=== PATIENT | female | born 1935 | race Caucasian/White ===

== ENCOUNTER 2018-01-11 10:34 | Emergency (ER) | payer MEDICARE, OTHER ==
[~2018-01-11] VITALS: Ht 152.4 cm; Wt 62.1 kg
[2018-01-11] MEDS ORDERED: SODIUM CHLORIDE FLUSH 10ML SYR IVF ONE (11:30)
[2018-01-11] MEDS ORDERED: SODIUM CHLORIDE 0.9% 1,000ML IVBOLUS ONE (11:30)
[2018-01-11 11:53] LABS: BASOPHILS # (AUTO) 0.02 x10^3/uL (0-0.1); BASOPHILS % (AUTO) 0 % (0-1); EOSINOPHILS # (AUTO) 0.33 x10^3/uL (0-0.4); EOSINOPHILS % (AUTO) 3 % (1-7); LYMPHOCYTES # (AUTO) 1.25 x10^3/uL (1-3.4); LYMPHOCYTES % (AUTO) 13 % (22-44); MD NO; MEAN CORPUSCULAR HEMOGLOBIN 30.9 pg (27.0-34.8); MEAN CORPUSCULAR HGB CONC 33.4 g/dL (32.4-35.8); MEAN CORPUSCULAR VOLUME 92.5 fL (80-100); MONOCYTES # (AUTO) 1.12 x10^3/uL (0.2-0.8); MONOCYTES % (AUTO) 12 % (2-9); NEUTROPHILS # (AUTO) 6.98 x10^3/uL (1.8-6.8); NEUTROPHILS % (AUTO) 72 % (42-75); PLATELET COUNT 302 x10^3/uL (130-400); RED BLOOD COUNT 4.37 x10^6/uL (3.82-5.3); RED CELL DISTRIBUTION WIDTH 13.8 % (9.6-15.2)
[2018-01-11 12:05] LABS: ALBUMIN 3.3 g/dL (3.4-5.0); ANION GAP 9 mmol/L (5-15); CALCIUM 8.7 mg/dL (8.5-10.1); CHLORIDE 109 mmol/L (98-107); CREATININE 1.91 mg/dL (0.55-1.02)
[2018-01-11] MEDS ORDERED: FENTANYL PF 100 MCG/2ML ONE (13:10)
[2018-01-11] MEDS ORDERED: PROPOFOL 10 MG/ML, 20ML ONE (13:10)
[2018-01-11] MEDS ORDERED: PROPOFOL 10 MG/ML, 100ML IV ONE (13:30)
[2018-01-11] MEDS ORDERED: FENTANYL PF 100 MCG/2ML IVPush ONE (13:30)
[2018-01-11 16:19] VITALS: BP 169/54
== END 2018-01-11 17:07 | disposition home or self-care (01) ==
LOC: ED 11:20
PROC: 0DC58ZZ Extirpation of Matter from Esophagus, Via Natural or Artificial Opening Endoscopic (ICD-10-PCS; principal; 2018-01-11 13:00)
DX: T18.128A Food in esophagus causing other injury, initial encounter (principal); I10 Essential (primary) hypertension; E03.9 Hypothyroidism, unspecified; E78.5 Hyperlipidemia, unspecified; X58.XXXA Exposure to other specified factors, initial encounter; Y93.89 Activity, other specified; Y92.89 Other specified places as the place of occurrence of the external cause; Y99.8 Other external cause status
CPT/HCPCS: 36415; 80048; 82040; 85025; 99152; 99153; 99285

== ENCOUNTER 2019-09-04 10:35 | Emergency (ER) | payer MEDICARE, OTHER ==
[~2019-09-04] VITALS: Ht 152.4 cm; Wt 65.2 kg
[~2019-09-04 10:35] MED LIST: AMIO200T42 PO; AMLO10TA8 PO; BUME0.5T2 PO; DULO30CA2 PO; FERR324T5 PO; ISOS30TA8 PO; LEVO88TA4 PO; OMEP-110 PO; POTA10TA5 PO; RANI150T4 PO; ROSU10TA2 PO; SITA25TA PO; SUCR1ORA5 PO; VALS80TA3 PO
--- NOTE | 2019-09-04 11:46 | NUR ---
piv started from which labs were drawn clean catch urine obtained sent to lab
[2019-09-04 11:51] LABS: CULTURE INDICATED? YES; MICROSCOPIC INDICATED
[2019-09-04 11:57] LABS: BASOPHILS # (AUTO) 0.04 x10^3/uL (0-0.1); BASOPHILS % (AUTO) 0 % (0-1); EOSINOPHILS # (AUTO) 0.45 x10^3/uL (0-0.4); EOSINOPHILS % (AUTO) 4 % (1-7); LYMPHOCYTES # (AUTO) 1.73 x10^3/uL (1-3.4); LYMPHOCYTES % (AUTO) 16 % (22-44); MD NO; MEAN CORPUSCULAR VOLUME 97.2 fL (80-100); MEAN PLATELET VOLUME 9.1 fL (7.4-10.4); MONOCYTES # (AUTO) 1.33 x10^3/uL (0.2-0.8); MONOCYTES % (AUTO) 12 % (2-9); NEUTROPHILS % (AUTO) 68 % (42-75); PLATELET COUNT 220 x10^3/uL (130-400); RED BLOOD COUNT 4.31 x10^6/uL (3.82-5.3); RED CELL DISTRIBUTION WIDTH 13.7 % (9.6-15.2)
[2019-09-04 12:10] LABS: ALBUMIN 3.1 g/dL (3.4-5.0); ANION GAP 8 mmol/L (5-15); CALCIUM 8.5 mg/dL (8.5-10.1); CHLORIDE 110 mmol/L (98-107)
[2019-09-04 12:14] LABS: ALANINE AMINOTRANSFERASE 49 U/L (12-78); ALKALINE PHOSPHATASE 143 U/L (45-117); BILIRUBIN,TOTAL 0.5 mg/dL (0.2-1.0); CREATININE 1.79 mg/dL (0.55-1.02); TOTAL PROTEIN 7.5 g/dL (6.4-8.2)
--- NOTE | 2019-09-04 12:23 | NUR ---
With reassessment patient deferring pain/nausea medicines. Vss on monitor technician Provider made aware of contrast allergy- order changed to CT abd w/OUT contrast patient/family updated
[2019-09-04 12:25] VITALS: BP 163/44
[2019-09-04] MEDS ORDERED: SODIUM CHLORIDE FLUSH 10ML SYR IVF ONE (12:30)
--- NOTE | 2019-09-04 13:00 | NUR ---
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
== END 2019-09-04 14:07 | disposition home or self-care (01) ==
LOC: ED 11:09
DX: R10.84 Generalized abdominal pain (principal); I10 Essential (primary) hypertension
CPT/HCPCS: 36415; 74176; 80053; 81001; 83690; 85025; 87086; 93005; 99284

== ENCOUNTER 2020-05-15 14:22 | Emergency (ER) | payer MEDICARE, OTHER ==
[~2020-05-15] VITALS: Ht 152.4 cm; Wt 62.9 kg
[2020-05-15 14:39] VITALS: BP 172/43
--- NOTE | 2020-05-15 14:45 | NUR ---
PT AMBULATES WELL FROM TRIAGE TO ED ROOM.
[2020-05-15 15:57] LABS: BASOPHILS # (AUTO) 0.04 x10^3/uL (0-0.1); BASOPHILS % (AUTO) 1 % (0-1); EOSINOPHILS # (AUTO) 0.18 x10^3/uL (0-0.4); EOSINOPHILS % (AUTO) 2 % (1-7); LYMPHOCYTES # (AUTO) 2.07 x10^3/uL (1-3.4); LYMPHOCYTES % (AUTO) 25 % (22-44); MD NO; MEAN CORPUSCULAR HEMOGLOBIN 30.9 pg (27.0-34.8); MEAN CORPUSCULAR HGB CONC 31.8 g/dL (32.4-35.8); MEAN CORPUSCULAR VOLUME 97.1 fL (80-100); MEAN PLATELET VOLUME 8.9 fL (7.4-10.4); MONOCYTES # (AUTO) 1.03 x10^3/uL (0.2-0.8); MONOCYTES % (AUTO) 12 % (2-9); NEUTROPHILS % (AUTO) 61 % (42-75); PLATELET COUNT 214 x10^3/uL (130-400); RED BLOOD COUNT 4.85 x10^6/uL (3.82-5.3); RED CELL DISTRIBUTION WIDTH 13.5 % (9.6-15.2)
[2020-05-15] MEDS ORDERED: SODIUM CHLORIDE FLUSH 10ML SYR IVF ONE (16:00)
[2020-05-15] MEDS ORDERED: SODIUM CHLORIDE 0.9% 1,000ML IVBOLUS ONE (16:00)
[2020-05-15 16:09] LABS: CHLORIDE 108 mmol/L (98-107)
[2020-05-15 16:16] LABS: ALANINE AMINOTRANSFERASE 43 U/L (12-78); ALBUMIN 3.5 g/dL (3.4-5.0); ALKALINE PHOSPHATASE 119 U/L (45-117); ANION GAP 6 mmol/L (5-15); BILIRUBIN,TOTAL 0.9 mg/dL (0.2-1.0); CALCIUM 9.2 mg/dL (8.5-10.1); CREATININE 2.34 mg/dL (0.55-1.02); TOTAL PROTEIN 8.5 g/dL (6.4-8.2)
[2020-05-15] MEDS ORDERED: OMNIPAQUE 350 MG/ML, 150 ML BOTTLE ONE (16:39)
--- NOTE | 2020-05-15 16:44 | NUR ---
PT UP TO RESTROOM WITH SAMPLE CUP FOR URINE COLLECTION.
[2020-05-15 17:04] LABS: MICROSCOPIC AUTO
== END 2020-05-15 18:51 | disposition home or self-care (01) ==
LOC: ED 15:23
DX: K22.2 Esophageal obstruction (principal); R11.2 Nausea with vomiting, unspecified; I10 Essential (primary) hypertension; E03.9 Hypothyroidism, unspecified
CPT/HCPCS: 36415; 74220; 80053; 81001; 83605; 83690; 85025; 87086; 96360; 99285; J7030; Q9967; 99284

== ENCOUNTER → 2020-06-19 | Outpatient (CLI) | payer MEDICARE, OTHER | END | disposition home or self-care (01) | LOC: STAR 09:29 | PROVIDERS: ATTEND Anesthesiology | DX: Z01.818 Encounter for other preprocedural examination (principal); Z11.59 Encounter for screening for other viral diseases | CPT/HCPCS: 36415; 87635 ==

== ENCOUNTER 2020-06-23 07:51 | Day surgery (SDC) | payer MEDICARE, OTHER ==
[~2020-06-23] VITALS: Ht 152.4 cm; Wt 61.2 kg
[2020-06-23] MEDS ORDERED: CHLORHEXIDINE 15 ML UDC MM STA (07:59)
[2020-06-23] MEDS ORDERED: LACTATED RINGERS 1,000 ML IV SCH (07:59)
[2020-06-23] MEDS ORDERED: CHLORHEXIDINE 15 ML UDC ONE (08:01)
[2020-06-23 08:06] VITALS: BP 175/69
[2020-06-23 08:24] LABS: BASOPHILS # (AUTO) 0.04 x10^3/uL (0-0.1); BASOPHILS % (AUTO) 1 % (0-1); EOSINOPHILS # (AUTO) 0.16 x10^3/uL (0-0.4); EOSINOPHILS % (AUTO) 2 % (1-7); LYMPHOCYTES % (AUTO) 25 % (22-44); MD NO; MEAN CORPUSCULAR HEMOGLOBIN 31.3 pg (27.0-34.8); MEAN CORPUSCULAR HGB CONC 32.5 g/dL (32.4-35.8); MEAN CORPUSCULAR VOLUME 96.2 fL (80-100); MEAN PLATELET VOLUME 8.3 fL (7.4-10.4); MONOCYTES # (AUTO) 1.11 x10^3/uL (0.2-0.8); MONOCYTES % (AUTO) 14 % (2-9); NEUTROPHILS # (AUTO) 4.83 x10^3/uL (1.8-6.8); NEUTROPHILS % (AUTO) 59 % (42-75); PLATELET COUNT 218 x10^3/uL (130-400); RED BLOOD COUNT 4.62 x10^6/uL (3.82-5.3)
[2020-06-23] MEDS ORDERED: SODIUM CHLORIDE 0.9% 1,000 ML IV SCH ×2 (08:30→08:33)
[2020-06-23] MEDS ORDERED: PLEASE ENTER HEIGHT AND WEIGHT MC SCH (08:30)
[2020-06-23 08:36] LABS: ANION GAP 7 mmol/L (5-15); CALCIUM 9.3 mg/dL (8.5-10.1); CHLORIDE 108 mmol/L (98-107); CREATININE 2.31 mg/dL (0.55-1.02)
[2020-06-23] MEDS ORDERED: PROPOFOL 10 MG/ML, 20ML ONE (08:58)
[2020-06-23] MEDS ORDERED: ONABOTULINUMTOXINA 100 UNITS ONE (09:36)
== END 2020-06-23 11:25 | disposition home or self-care (01) ==
LOC: OUT 07:51
PROVIDERS: ATTEND Internal Medicine Gastroenterology
DX: R13.14 Dysphagia, pharyngoesophageal phase (principal); K22.0 Achalasia of cardia; E11.22 Type 2 diabetes mellitus with diabetic chronic kidney disease; I12.9 Hypertensive chronic kidney disease with stage 1 through stage 4 chronic kidney disease, or unspecified chronic kidney disease; N18.9 Chronic kidney disease, unspecified; E03.9 Hypothyroidism, unspecified; J44.9 Chronic obstructive pulmonary disease, unspecified; Z87.891 Personal history of nicotine dependence; Z88.2 Allergy status to sulfonamides; Z88.8 Allergy status to other drugs, medicaments and biological substances; Z91.040 Latex allergy status; Z98.890 Other specified postprocedural states
CPT/HCPCS: 36415; 43236; 43239; 43259; 80048; 85025; 88305; 93005; J0585; J2704; J7030; J7120

== ENCOUNTER 2020-07-15 04:22 | Inpatient (IN) | payer MEDICARE, OTHER ==
[~2020-07-15] VITALS: Ht 165.1 cm; Wt 63.1 kg
--- NOTE | 2020-07-15 04:40 | NUR ---
DELLA. A&o x4, but vague historian. Per EMS, pt was at 86% RA upon arrival with diminished breath sounds throughout. Given duoneb with good effect. Pt states, "I don't remember any of this stuff you're asking me. I don't know." States she has been feelings increased weakness/RIVERA x "maybe a week" with associated dry, non-productive cough. Also states, "I had esophagus surgery the other day because I can't swallow." Denies complications, denies hemoptysis. States increased SOB since prior to procedure. Denies chest pain/abd pain. Denies fever/chills. Denies N/V/D. Able to turn and pivot from EMS to ED stretcher independently
[2020-07-15] MEDS ORDERED: SODIUM CHLORIDE FLUSH 10ML SYR IVF ONE (05:30)
[2020-07-15] MEDS ORDERED: ALBUTEROL/IPRATROPIUM 2.5MG/0.5MG, 3 ML NPPB ONE (05:30)
[2020-07-15 05:35] LABS: BASOPHILS # (AUTO) 0.04 x10^3/uL (0-0.1); BASOPHILS % (AUTO) 0 % (0-1); EOSINOPHILS # (AUTO) 0.05 x10^3/uL (0-0.4); EOSINOPHILS % (AUTO) 0 % (1-7); LYMPHOCYTES # (AUTO) 2.16 x10^3/uL (1-3.4); LYMPHOCYTES % (AUTO) 17 % (22-44); MD NO; MEAN CORPUSCULAR HEMOGLOBIN 31.7 pg (27.0-34.8); MEAN CORPUSCULAR HGB CONC 32.7 g/dL (32.4-35.8); MONOCYTES # (AUTO) 1.26 x10^3/uL (0.2-0.8); MONOCYTES % (AUTO) 10 % (2-9); NEUTROPHILS # (AUTO) 8.87 x10^3/uL (1.8-6.8); NEUTROPHILS % (AUTO) 72 % (42-75); PLATELET COUNT 205 x10^3/uL (130-400); RED BLOOD COUNT 3.85 x10^6/uL (3.82-5.3); RED CELL DISTRIBUTION WIDTH 14.2 % (9.6-15.2)
[2020-07-15] MEDS ORDERED: ALBUTEROL/IPRATROPIUM 2.5MG/0.5MG, 3 ML ONE (05:42)
--- NOTE | 2020-07-15 05:51 | NUR ---
CAREGIVER/DAUGHTER MANI TOMLINSON [phone]
[2020-07-15 06:04] LABS: ALBUMIN 3.2 g/dL (3.4-5.0); ANION GAP 10 mmol/L (5-15); CALCIUM 8.9 mg/dL (8.5-10.1); CHLORIDE 109 mmol/L (98-107)
[2020-07-15 06:12] LABS: ALANINE AMINOTRANSFERASE 31 U/L (12-78); ALKALINE PHOSPHATASE 110 U/L (45-117); BILIRUBIN,TOTAL 0.9 mg/dL (0.2-1.0); TOTAL PROTEIN 7.3 g/dL (6.4-8.2); TROPONIN I 0.044 ng/mL (0.000-0.045)
[2020-07-15] MEDS ORDERED: SODIUM CHLORIDE FLUSH 10ML SYR IVF PRN (07:00)
[2020-07-15] MEDS ORDERED: FUROSEMIDE 20 MG/2 ML IV ONE (07:00)
--- NOTE | 2020-07-15 07:00 | NUR ---
BEDSIDE REPORT RECIEVED FROM NOC RN, CARE ASSUMED AT THIS TIME. PT WITH C/O BURNING IN CHEST POST PREDNISONE ADMIN. ERMD UPDATED, GI COCKTAIL ORDERED. PT MEDICATED PER DEC. PT NOW ON 4L NC SATING 88-89%. ERMD AWARE. WILL REASSESS POST LASIX ADMIN.
[2020-07-15] MEDS ORDERED: FUROSEMIDE 20 MG/2 ML ONE (07:18)
[2020-07-15] MEDS ORDERED: MAALOX/HYOSCYAMINE/LIDOCAINE 45 ML BTL ONE (07:21)
[2020-07-15] MEDS ORDERED: MAALOX/HYOSCYAMINE/LIDOCAINE 45 ML BTL PO ONE (07:30)
--- NOTE | 2020-07-15 07:41 | NUR ---
ADMITTING MD IN TO EVAL PT AT THIS TIME, PT STILL REQUIRING INCREASING O2 AT THIS TIME PLACED ON NRB MASK 10L, PT SLOWLY REGAIN TO 93%. ADMITTING MD AWARE OF INCREASE OF O2 DEMANDS. RR 24-30
--- NOTE | 2020-07-15 07:42 | NUR ---
family wants up date call when possible: Kallie (daughter) [phone]
[2020-07-15] MEDS ORDERED: SENNA/DOCUSATE TABLET PO PRN (08:00)
[2020-07-15] MEDS ORDERED: morphine SULFATE 10 MG/ML, 1ML IVPush PRN (08:00)
[2020-07-15] MEDS ORDERED: ONDANSETRON 2MG/ML, 2ML IVPush PRN (08:00)
[2020-07-15] MEDS ORDERED: ACETAMINOPHEN 325 MG TABLET PO PRN (08:00)
[2020-07-15] MEDS ORDERED: ONDANSETRON ODT 4 MG PO PRN (08:00)
[2020-07-15] MEDS ORDERED: POLYETHYLENE GLYCOL 17 GM PACKET PO PRN (08:00)
--- NOTE | 2020-07-15 08:13 | NUR ---
REPORT TO RECIEVING LENKA SORENSON
[2020-07-15] MEDS ORDERED: ASPIRIN 325 MG TABLET PO ONE (08:30)
[2020-07-15 08:37] LABS: HCT (SEDRATE) 37.3 % (34.6-47.8)
[2020-07-15] MEDS: DEXAMETHASONE 4 MG/ML, 1ML IVPush SCH (09:00)
[2020-07-15 09:19] LABS: C-REACTIVE PROTEIN, QUANT 1.4 mg/dL (0.02-0.49)
[2020-07-15] MEDS ORDERED: SIMETHICONE 80 MG CHEW TAB PO PRN (09:30)
[2020-07-15] MEDS ORDERED: CALCIUM CARBONATE 500 MG TAB.CHEW PO PRN (09:30)
[2020-07-15 09:42] VITALS: BP 155/52
[2020-07-15] MEDS: THIAMINE 100MG TABLET PO SCH ×2 (10:46→20:33)
[2020-07-15] MEDS: LEVOTHYROXINE 88 MCG TABLET PO SCH (10:46)
[2020-07-15] MEDS: CHOLECALCIFEROL 5,000u TAB PO SCH (10:46)
[2020-07-15] MEDS: AMIODARONE 200 MG TABLET PO SCH (10:46)
[2020-07-15] MEDS: ZINC SULFATE 220 MG CAPSULE PO SCH (10:46)
[2020-07-15] MEDS: HEPARIN 5,000 UNITS/ML, 1ML SQ SCH ×3 (10:48→23:23)
[2020-07-15] MEDS: AZITHROMYCIN 500 MG in SODIUM CHLORIDE 0.9% 250 ML IV SCH (11:20)
[2020-07-15 13:03] LABS: TROPONIN I 0.131 ng/mL (0.000-0.045)
[2020-07-15] MEDS: INSULIN LISPRO 100 UNITS/ML, PEN SQ-INSULIN SCH ×3 (13:21→20:34)
[2020-07-15] MEDS: ASCORBIC ACID 500 MG TABLET PO SCH ×2 (13:21→16:07)
[2020-07-15 13:37] VITALS: BP 139/52
[2020-07-15] MEDS: FUROSEMIDE 20 MG/2 ML IV SCH (16:07)
[2020-07-15 18:49] LABS: TROPONIN I 0.147 ng/mL (0.000-0.045)
[2020-07-15 18:51] VITALS: BP 177/64
[2020-07-15 20:29] LABS: MICROSCOPIC AUTO
[2020-07-15] MEDS: ATORVASTATIN 40 MG TABLET PO SCH (20:33)
[2020-07-15] MEDS ORDERED: DIPHENHYDRAMINE 25 MG CAPSULE ONE (21:39)
[2020-07-15] MEDS ORDERED: DIPHENHYDRAMINE 25 MG CAPSULE PO PRN (22:00)
[2020-07-16 00:48] VITALS: BP 190/68
[2020-07-16] MEDS ORDERED: PROPOFOL 100 ML IV ONE (01:33)
[2020-07-16 01:52] LABS: MICROSCOPIC NOT IND
[2020-07-16] MEDS ORDERED: GLUCAGON 1 MG IM PRN ×2 (02:00→02:30)
[2020-07-16] MEDS ORDERED: CEFTRIAXONE PMX 1GM/50ML 50 ML IV SCH (02:00)
[2020-07-16] MEDS ORDERED: DEXTROSE 50%, 50ML SYRINGE IVPush PRN ×2 (02:00→02:30)
[2020-07-16] MEDS ORDERED: PHARMACY MAY ADJ FOR RENAL FX MC SCH ×2 (02:00→02:30)
[2020-07-16] MEDS ORDERED: DEXTROSE 4 GM TAB.CHEW PO PRN ×2 (02:00→02:30)
[2020-07-16] MEDS ORDERED: LIDOCAINE-MPF 1%, 2ML ENDO PRN ×2 (02:00→02:30)
[2020-07-16] MEDS ORDERED: SENNA/DOCUSATE TABLET NG PRN ×2 (02:00→02:30)
[2020-07-16 02:34] LABS: MEAN CORPUSCULAR HEMOGLOBIN 31.4 pg (27.0-34.8); MEAN CORPUSCULAR HGB CONC 32.2 g/dL (32.4-35.8); MEAN PLATELET VOLUME 9.4 fL (7.4-10.4); PLATELET COUNT 251 x10^3/uL (130-400); RED CELL DISTRIBUTION WIDTH 14.9 % (9.6-15.2)
[2020-07-16 02:39] LABS: ALANINE AMINOTRANSFERASE 32 U/L (12-78); ALBUMIN 2.8 g/dL (3.4-5.0); ANION GAP 12 mmol/L (5-15); CALCIUM 8.7 mg/dL (8.5-10.1); CHLORIDE 110 mmol/L (98-107); CREATININE 2.05 mg/dL (0.55-1.02); TRIGLYCERIDES 90 mg/dL (50-200)
[2020-07-16 02:42] LABS: ALKALINE PHOSPHATASE 95 U/L (45-117); BILIRUBIN,TOTAL 0.9 mg/dL (0.2-1.0); TOTAL PROTEIN 7.3 g/dL (6.4-8.2)
[2020-07-16 02:51] LABS: BASOPHILS # (AUTO) 0.05 x10^3/uL (0-0.1); BASOPHILS % (AUTO) 0 % (0-1); EOSINOPHILS # (AUTO) 0.01 x10^3/uL (0-0.4); EOSINOPHILS % (AUTO) 0 % (1-7); LYMPHOCYTES # (AUTO) 1.19 x10^3/uL (1-3.4); LYMPHOCYTES % (AUTO) 7 % (22-44); MD SCAN; MONOCYTES # (AUTO) 1.64 x10^3/uL (0.2-0.8); MONOCYTES % (AUTO) 10 % (2-9); NEUTROPHILS % (AUTO) 82 % (42-75)
[2020-07-16] MEDS: CEFTRIAXONE PMX 1GM/50ML 50 ML IV SCH (03:04)
[2020-07-16] MEDS: FENTANYL PF 1,000 MCG in SODIUM CHLORIDE 0.9% 80 ML IV PRN (03:08)
[2020-07-16] MEDS: PROPOFOL 100 ML IV PRN ×2 (03:08→08:56)
[2020-07-16] MEDS ORDERED: ASPIRIN 81 MG TABLET EC PO SCH (06:00)
[2020-07-16] MEDS: INSULIN LISPRO 100 UNITS/ML, PEN SQ-INSULIN SCH ×4 (07:00→21:06)
[2020-07-16 07:48] LABS: TROPONIN I 0.327 ng/mL (0.000-0.045)
[2020-07-16] MEDS: AZITHROMYCIN 500 MG in SODIUM CHLORIDE 0.9% 250 ML IV SCH (08:18)
[2020-07-16] MEDS: HEPARIN 5,000 UNITS/ML, 1ML SQ SCH ×3 (08:55→23:57)
[2020-07-16] MEDS: ASCORBIC ACID 500 MG TABLET PO SCH ×2 (08:55→17:20)
[2020-07-16] MEDS: THIAMINE 100MG TABLET PO SCH ×2 (08:55→21:01)
[2020-07-16] MEDS: PANTOPRAZOLE 40 MG IV IV SCH (08:55)
[2020-07-16] MEDS: DEXAMETHASONE 4 MG/ML, 1ML IVPush SCH (08:56)
[2020-07-16] MEDS: FUROSEMIDE 20 MG/2 ML IV SCH ×2 (08:56→17:20)
[2020-07-16] MEDS: CHOLECALCIFEROL 5,000u TAB PO SCH (08:57)
[2020-07-16] MEDS: AMIODARONE 200 MG TABLET PO SCH (08:57)
[2020-07-16] MEDS: LEVOTHYROXINE 88 MCG TABLET PO SCH (08:57)
[2020-07-16] MEDS: ZINC SULFATE 220 MG CAPSULE PO SCH (08:57)
[2020-07-16] MEDS: SODIUM CHLORIDE FLUSH 10ML SYR IVF SCH ×2 (08:58→21:03)
[2020-07-16] MEDS ORDERED: PANTOPRAZOLE 40 MG IV IV SCH (09:00)
[2020-07-16] MEDS ORDERED: SODIUM CHLORIDE FLUSH 10ML SYR IVF SCH (09:00)
[2020-07-16] MEDS: FUROSEMIDE 40 MG/4 ML IV ONE ×2 (11:30→12:14)
[2020-07-16] MEDS ORDERED: METOLAZONE 10 MG TABLET ONE (11:41)
[2020-07-16] MEDS ORDERED: METOLAZONE 5 MG TABLET PO ONE ×2 (12:00→18:30)
[2020-07-16] MEDS ORDERED: MIDODRINE 5 MG TABLET PO SCH (12:30)
[2020-07-16 12:33] LABS: TROPONIN I 0.247 ng/mL (0.000-0.045)
[2020-07-16] MEDS: ALBUTEROL/IPRATROPIUM 2.5MG/0.5MG, 3 ML NPPB SCH ×3 (14:30→23:00)
[2020-07-16] MEDS: MIDAZOLAM HCL 50 MG in SODIUM CHLORIDE 0.9% 40 ML IV PRN (16:08)
[2020-07-16] MEDS ORDERED: FUROSEMIDE 40 MG/4 ML ONE (18:12)
[2020-07-16] MEDS ORDERED: MAGNESIUM SULFATE PMX 2GM/50ML 50 ML ONE (18:12)
[2020-07-16] MEDS: NOREPINEPHRINE 8 MG in SODIUM CHLORIDE 0.9% 242 ML IV PRN (18:17)
[2020-07-16] MEDS ORDERED: CALCIUM CHLORIDE 13.6 MEQ in SODIUM CHLORIDE 0.9% 100 ML IV ONE (18:30)
[2020-07-16] MEDS ORDERED: MAGNESIUM SULFATE PMX 2GM/50ML 50 ML IV ONE (18:30)
[2020-07-16] MEDS: DOXYCYCLINE 100MG TABLET PO SCH (21:01)
[2020-07-16] MEDS: ATORVASTATIN 40 MG TABLET PO SCH (21:01)
[2020-07-17] MEDS: CEFTRIAXONE PMX 1GM/50ML 50 ML IV SCH (02:22)
[2020-07-17] MEDS: ALBUTEROL/IPRATROPIUM 2.5MG/0.5MG, 3 ML NPPB SCH ×6 (03:00→22:55)
[2020-07-17 04:24] LABS: MEAN CORPUSCULAR HEMOGLOBIN 31.6 pg (27.0-34.8); MEAN CORPUSCULAR HGB CONC 32.3 g/dL (32.4-35.8); MEAN PLATELET VOLUME 9.6 fL (7.4-10.4); PLATELET COUNT 248 x10^3/uL (130-400); RED BLOOD COUNT 3.64 x10^6/uL (3.82-5.3)
[2020-07-17 04:26] LABS: ANION GAP 8 mmol/L (5-15); CALCIUM 10.2 mg/dL (8.5-10.1); CHLORIDE 106 mmol/L (98-107); CREATININE 2.44 mg/dL (0.55-1.02)
[2020-07-17 04:48] LABS: BASOPHILS # (AUTO) 0.01 x10^3/uL (0-0.1); BASOPHILS % (AUTO) 0 % (0-1); EOSINOPHILS % (AUTO) 0 % (1-7); LYMPHOCYTES # (AUTO) 0.93 x10^3/uL (1-3.4); LYMPHOCYTES % (AUTO) 8 % (22-44); MD SCAN; MONOCYTES # (AUTO) 1.11 x10^3/uL (0.2-0.8); MONOCYTES % (AUTO) 9 % (2-9); NEUTROPHILS # (AUTO) 9.93 x10^3/uL (1.8-6.8); NEUTROPHILS % (AUTO) 83 % (42-75)
[2020-07-17] MEDS: FENTANYL PF 1,000 MCG in SODIUM CHLORIDE 0.9% 80 ML IV PRN (06:43)
[2020-07-17] MEDS: ASPIRIN 81 MG TABLET CHEW PO SCH (06:43)
[2020-07-17] MEDS: MIDAZOLAM HCL 50 MG in SODIUM CHLORIDE 0.9% 40 ML IV PRN ×2 (06:44→19:53)
[2020-07-17] MEDS: INSULIN LISPRO 100 UNITS/ML, PEN SQ-INSULIN SCH ×4 (08:30→21:08)
[2020-07-17] MEDS: PANTOPRAZOLE 40 MG IV IV SCH (08:30)
[2020-07-17] MEDS: LEVOTHYROXINE 88 MCG TABLET PO SCH (08:31)
[2020-07-17] MEDS: ZINC SULFATE 220 MG CAPSULE PO SCH (08:31)
[2020-07-17] MEDS: DOXYCYCLINE 100MG TABLET PO SCH ×2 (08:31→21:08)
[2020-07-17] MEDS: DEXAMETHASONE 4 MG/ML, 1ML IVPush SCH (08:31)
[2020-07-17] MEDS: HEPARIN 5,000 UNITS/ML, 1ML SQ SCH ×2 (08:31→15:57)
[2020-07-17] MEDS: ASCORBIC ACID 500 MG TABLET PO SCH (08:31)
[2020-07-17] MEDS: SODIUM CHLORIDE FLUSH 10ML SYR IVF SCH ×2 (08:32→21:07)
[2020-07-17] MEDS: THIAMINE 100MG TABLET PO SCH (08:32)
[2020-07-17] MEDS: CHOLECALCIFEROL 5,000u TAB PO SCH (08:32)
[2020-07-17] MEDS: NOREPINEPHRINE 8 MG in SODIUM CHLORIDE 0.9% 242 ML IV PRN (12:47)
[2020-07-17] MEDS: ATORVASTATIN 40 MG TABLET PO SCH (21:08)
[2020-07-18] MEDS: HEPARIN 5,000 UNITS/ML, 1ML SQ SCH ×3 (00:37→17:02)
[2020-07-18] MEDS: ALBUTEROL/IPRATROPIUM 2.5MG/0.5MG, 3 ML NPPB SCH ×6 (02:33→22:03)
[2020-07-18] MEDS: INSULIN LISPRO 100 UNITS/ML, PEN SQ-INSULIN SCH ×4 (02:41→21:00)
[2020-07-18] MEDS: CEFTRIAXONE PMX 1GM/50ML 50 ML IV SCH (02:41)
[2020-07-18 04:52] LABS: BASOPHILS # (AUTO) 0.01 x10^3/uL (0-0.1); BASOPHILS % (AUTO) 0 % (0-1); EOSINOPHILS % (AUTO) 0 % (1-7); LYMPHOCYTES # (AUTO) 0.72 x10^3/uL (1-3.4); LYMPHOCYTES % (AUTO) 7 % (22-44); MD NO; MEAN CORPUSCULAR HEMOGLOBIN 31.5 pg (27.0-34.8); MEAN CORPUSCULAR HGB CONC 32.3 g/dL (32.4-35.8); MEAN PLATELET VOLUME 9.3 fL (7.4-10.4); MONOCYTES # (AUTO) 1.03 x10^3/uL (0.2-0.8); MONOCYTES % (AUTO) 10 % (2-9); NEUTROPHILS # (AUTO) 9.03 x10^3/uL (1.8-6.8); NEUTROPHILS % (AUTO) 84 % (42-75); PLATELET COUNT 235 x10^3/uL (130-400); RED BLOOD COUNT 3.37 x10^6/uL (3.82-5.3); RED CELL DISTRIBUTION WIDTH 14.7 % (9.6-15.2)
[2020-07-18 05:01] LABS: ANION GAP 9 mmol/L (5-15); CHLORIDE 108 mmol/L (98-107)
[2020-07-18 05:02] LABS: CALCIUM 9.2 mg/dL (8.5-10.1); CREATININE 2.42 mg/dL (0.55-1.02)
[2020-07-18] MEDS: ASPIRIN 81 MG TABLET CHEW PO SCH (05:08)
[2020-07-18] MEDS: PANTOPRAZOLE 40 MG IV IV SCH (09:32)
[2020-07-18] MEDS: SODIUM CHLORIDE FLUSH 10ML SYR IVF SCH ×2 (09:33→21:00)
[2020-07-18] MEDS: LEVOTHYROXINE 88 MCG TABLET PO SCH (09:33)
[2020-07-18] MEDS: DOXYCYCLINE 100MG TABLET PO SCH ×2 (09:33→21:00)
[2020-07-18] MEDS ORDERED: ALBUMIN HUMAN 25% 50 ML IV ONE (12:00)
[2020-07-18] MEDS ORDERED: FUROSEMIDE 40 MG/4 ML IV ONE (12:00)
[2020-07-18] MEDS: FENTANYL PF 1,000 MCG in SODIUM CHLORIDE 0.9% 80 ML IV PRN (15:48)
[2020-07-18] MEDS ORDERED: INSULIN GLARGINE 100 UNITS/ML, PEN SQ-INSULIN SCH (21:00)
[2020-07-18] MEDS: ATORVASTATIN 40 MG TABLET PO SCH (21:00)
[2020-07-19] MEDS: HEPARIN 5,000 UNITS/ML, 1ML SQ SCH ×3 (00:44→16:49)
[2020-07-19] MEDS: ALBUTEROL/IPRATROPIUM 2.5MG/0.5MG, 3 ML NPPB SCH ×6 (02:46→22:16)
[2020-07-19] MEDS: CEFTRIAXONE PMX 1GM/50ML 50 ML IV SCH (03:12)
[2020-07-19] MEDS: INSULIN LISPRO 100 UNITS/ML, PEN SQ-INSULIN SCH ×4 (03:13→21:38)
[2020-07-19 04:56] LABS: ANION GAP 9 mmol/L (5-15); BASOPHILS # (AUTO) 0.03 x10^3/uL (0-0.1); BASOPHILS % (AUTO) 0 % (0-1); CALCIUM 8.8 mg/dL (8.5-10.1); CHLORIDE 108 mmol/L (98-107); EOSINOPHILS # (AUTO) 0.04 x10^3/uL (0-0.4); EOSINOPHILS % (AUTO) 1 % (1-7); LYMPHOCYTES # (AUTO) 1.13 x10^3/uL (1-3.4); LYMPHOCYTES % (AUTO) 14 % (22-44); MD NO; MEAN CORPUSCULAR HEMOGLOBIN 31.1 pg (27.0-34.8); MEAN PLATELET VOLUME 9.4 fL (7.4-10.4); MONOCYTES # (AUTO) 0.72 x10^3/uL (0.2-0.8); MONOCYTES % (AUTO) 9 % (2-9); NEUTROPHILS # (AUTO) 6.35 x10^3/uL (1.8-6.8); NEUTROPHILS % (AUTO) 77 % (42-75); PLATELET COUNT 193 x10^3/uL (130-400); RED BLOOD COUNT 3.17 x10^6/uL (3.82-5.3); RED CELL DISTRIBUTION WIDTH 14.7 % (9.6-15.2)
[2020-07-19 04:58] LABS: CREATININE 2.73 mg/dL (0.55-1.02); TRIGLYCERIDES 129 mg/dL (50-200)
[2020-07-19] MEDS: ASPIRIN 81 MG TABLET CHEW PO SCH (06:01)
[2020-07-19] MEDS ORDERED: SODIUM CHLORIDE 0.9%, 500ML IVBOLUS ONE (06:30)
[2020-07-19] MEDS: DEXMEDETOMIDINE 400 MCG in SODIUM CHLORIDE 0.9% 96 ML IV PRN ×3 (06:31→23:11)
[2020-07-19] MEDS: PANTOPRAZOLE 40 MG IV IV SCH (08:58)
[2020-07-19] MEDS: LEVOTHYROXINE 88 MCG TABLET PO SCH (08:58)
[2020-07-19] MEDS: DOXYCYCLINE 100MG TABLET PO SCH ×2 (08:58→21:32)
[2020-07-19] MEDS: SODIUM CHLORIDE FLUSH 10ML SYR IVF SCH ×2 (08:59→21:33)
[2020-07-19] MEDS: FUROSEMIDE 40 MG/4 ML IV SCH (10:43)
[2020-07-19] MEDS: FENTANYL PF 1,000 MCG in SODIUM CHLORIDE 0.9% 80 ML IV PRN (15:38)
[2020-07-19] MEDS ORDERED: INSULIN GLARGINE 100 UNITS/ML, PEN SQ-INSULIN SCH (21:00)
[2020-07-19] MEDS: ATORVASTATIN 40 MG TABLET PO SCH (21:32)
[2020-07-20] MEDS: DEXMEDETOMIDINE 400 MCG in SODIUM CHLORIDE 0.9% 96 ML IV PRN ×2 (00:40→04:26)
[2020-07-20] MEDS: HEPARIN 5,000 UNITS/ML, 1ML SQ SCH ×3 (00:40→16:00)
[2020-07-20] MEDS: CEFTRIAXONE PMX 1GM/50ML 50 ML IV SCH (02:37)
[2020-07-20] MEDS: ALBUTEROL/IPRATROPIUM 2.5MG/0.5MG, 3 ML NPPB SCH ×4 (03:17→15:00)
[2020-07-20] MEDS: INSULIN LISPRO 100 UNITS/ML, PEN SQ-INSULIN SCH ×3 (04:26→15:00)
[2020-07-20] MEDS: FENTANYL PF 1,000 MCG in SODIUM CHLORIDE 0.9% 80 ML IV PRN (04:28)
[2020-07-20 05:14] LABS: MEAN CORPUSCULAR HGB CONC 31.9 g/dL (32.4-35.8); MEAN PLATELET VOLUME 9.9 fL (7.4-10.4); PLATELET COUNT 179 x10^3/uL (130-400); RED BLOOD COUNT 3.19 x10^6/uL (3.82-5.3); RED CELL DISTRIBUTION WIDTH 14.8 % (9.6-15.2)
[2020-07-20 05:19] LABS: ANION GAP 9 mmol/L (5-15); CHLORIDE 109 mmol/L (98-107); CREATININE 2.63 mg/dL (0.55-1.02)
[2020-07-20 05:44] LABS: BASOPHILS # (AUTO) 0.02 x10^3/uL (0-0.1); BASOPHILS % (AUTO) 0 % (0-1); EOSINOPHILS # (AUTO) 0.09 x10^3/uL (0-0.4); EOSINOPHILS % (AUTO) 1 % (1-7); LYMPHOCYTES # (AUTO) 0.85 x10^3/uL (1-3.4); LYMPHOCYTES % (AUTO) 10 % (22-44); MD SCAN; MONOCYTES # (AUTO) 1.02 x10^3/uL (0.2-0.8); MONOCYTES % (AUTO) 13 % (2-9); NEUTROPHILS # (AUTO) 6.18 x10^3/uL (1.8-6.8); NEUTROPHILS % (AUTO) 76 % (42-75)
[2020-07-20] MEDS: ASPIRIN 81 MG TABLET CHEW PO SCH (05:50)
[2020-07-20] MEDS: PANTOPRAZOLE 40 MG IV IV SCH (08:18)
[2020-07-20] MEDS: FUROSEMIDE 40 MG/4 ML IV SCH (08:19)
[2020-07-20] MEDS: LEVOTHYROXINE 88 MCG TABLET PO SCH (08:19)
[2020-07-20] MEDS: DOXYCYCLINE 100MG TABLET PO SCH (08:20)
[2020-07-20] MEDS: SODIUM CHLORIDE FLUSH 10ML SYR IVF SCH (09:00)
[2020-07-20] MEDS ORDERED: FENTANYL PF 100 MCG/2ML ONE (13:39)
[2020-07-20] MEDS ORDERED: LORazepam 2 MG/ML, 1ML ONE (14:10)
[2020-07-20] MEDS: LORazepam 2 MG/ML, 1ML IVPush PRN ×4 (14:10→19:41)
[2020-07-20] MEDS: morphine SULFATE 10 MG/ML, 1ML IVPush PRN ×2 (14:23→15:09)
[2020-07-20] MEDS ORDERED: LORazepam 2 MG/ML, 1ML IVPush PRN (14:30)
[2020-07-20] MEDS ORDERED: MORPHINE SULFATE 4 MG/ML, 1ML IVPush PRN (15:00)
[2020-07-20] MEDS ORDERED: SCOPOLAMINE 1MG PATCH TD PRN (15:00)
[2020-07-20] MEDS ORDERED: MORPHINE SULFATE 4 MG/ML, 1ML IV PRN (21:00)
[2020-07-20] MEDS ORDERED: SCOPOLAMINE PATCH, 1.5MG PATCH.TD72 TD PRN (21:00)
[2020-07-20] MEDS ORDERED: LORazepam 2 MG/ML, 1ML IV PRN (21:00)
[2020-07-20] MEDS ORDERED: ATROPINE OPHTH SOLN 1%, 5ML PO PRN (21:00)
[2020-07-20] MEDS ORDERED: ONDANSETRON 2MG/ML, 2ML IV PRN (21:00)
[2020-07-20] MEDS ORDERED: SODIUM CHLORIDE FLUSH 10ML SYR IVF SCH (21:00)
== END 2020-07-20 22:55 | disposition expired | DRG 207 ==
LOC: ED 06:50 → EDIP 06:55 → ED 07:33 → 4EST 09:28 → ICU 07-16 01:05 → CCU 07-17 11:50 → 4NW 07-20 17:11
PROVIDERS: ADMIT Internal Medicine; ATTEND Hospitalist
PROC: 5A1955Z Respiratory Ventilation, Greater than 96 Consecutive Hours (ICD-10-PCS; principal; 2020-07-16)
PROC: 0BH18EZ Insertion of Endotracheal Airway into Trachea, Via Natural or Artificial Opening Endoscopic (ICD-10-PCS; 2020-07-16)
PROC: 02HV33Z Insertion of Infusion Device into Superior Vena Cava, Percutaneous Approach (ICD-10-PCS; 2020-07-16)
PROC: B548ZZA Ultrasonography of Superior Vena Cava, Guidance (ICD-10-PCS; 2020-07-16)
PROC: 0T9B70Z Drainage of Bladder with Drainage Device, Via Natural or Artificial Opening (ICD-10-PCS; 2020-07-16)
DX: J96.01 Acute respiratory failure with hypoxia (principal); I21.A1 Myocardial infarction type 2; J18.9 Pneumonia, unspecified organism; I50.33 Acute on chronic diastolic (congestive) heart failure; I13.0 Hypertensive heart and chronic kidney disease with heart failure and stage 1 through stage 4 chronic kidney disease, or unspecified chronic kidney disease; J44.1 Chronic obstructive pulmonary disease with (acute) exacerbation; J44.0 Chronic obstructive pulmonary disease with (acute) lower respiratory infection; N17.9 Acute kidney failure, unspecified; N18.4 Chronic kidney disease, stage 4 (severe); E87.2 Acidosis; D68.59 Other primary thrombophilia; I35.0 Nonrheumatic aortic (valve) stenosis; E03.9 Hypothyroidism, unspecified; E11.22 Type 2 diabetes mellitus with diabetic chronic kidney disease; E11.51 Type 2 diabetes mellitus with diabetic peripheral angiopathy without gangrene; E78.5 Hyperlipidemia, unspecified; F32.9 Major depressive disorder, single episode, unspecified; I44.7 Left bundle-branch block, unspecified; I48.0 Paroxysmal atrial fibrillation; K21.9 Gastro-esophageal reflux disease without esophagitis; R13.10 Dysphagia, unspecified; Z20.828 Contact with and (suspected) exposure to other viral communicable diseases; R00.1 Bradycardia, unspecified; Z66 Do not resuscitate; Z79.4 Long term (current) use of insulin; Z87.891 Personal history of nicotine dependence; Z90.710 Acquired absence of both cervix and uterus; Z88.0 Allergy status to penicillin; Z88.2 Allergy status to sulfonamides; Z88.1 Allergy status to other antibiotic agents; Z91.041 Radiographic dye allergy status
CPT/HCPCS: 31500; 36415; 36573; 36600; 71045; 80048; 80053; 81001; 81003; 82330; 82728; 82803; 82962; 83036; 83615; 83735; 83880; 84100; 84145; 84478; 84484; 85025; 85379; 85651; 86140; 87040; 87070; 87081; 87205; 87635; 93005; 93306; 93970; 94002; 94003; 94640; 96374; G0378; J0456; J0696; J1100; J1644; J1940; J2250; J2704; J3010; P9047; C1751; C9113; J1815; J2060; J2270; J3475; J7040; J7050; J7512; Q0163